=== PATIENT | male | born 1990 | race Two or more races ===

== ENCOUNTER 2018-08-15 17:04 | Emergency (ER) | payer SELFPAY ==
[~2018-08-15] VITALS: Ht 185.4 cm; Wt 95.5 kg
[2018-08-15 17:12] VITALS: BP 121/69
[2018-08-15] MEDS ORDERED: ONDANSETRON HCL 4MG/2ML INJ ONE (18:36)
== END 2018-08-16 06:19 | disposition left against medical advice (07) ==
LOC: ER 17:04
DX: Z53.21 Procedure and treatment not carried out due to patient leaving prior to being seen by health care provider (principal)
CPT/HCPCS: J2405